=== PATIENT | male | born 1950 | race Caucasian/White ===

== ENCOUNTER 2022-02-14 00:24 | Day surgery (SDC) | payer MEDICARE, SELFPAY ==
[2022-01-02 11:17] VITALS: BMI 25.1
--- NOTE | 2022-02-13 16:43 | PM.HPGS ---
History of Present Illness History of Present Illness Consent: Risks, benefits, and alternatives have been discussed and questions answered. Patient agrees to proceed with procedure. Chief complaint: Hx of colon polyps Narrative: Sinan Yee is a 71 year old male Was referred for colon cancer screening. He has a history of polyps. At the time of his last colonoscopy 5 years ago only diverticulosis was noted. Review of Systems Review of Systems: All systems reviewed & are unremarkable except as noted in HPI and below PMFSH Surgical History Surgical History H/O colonoscopy History of shoulder surgery Social History Social History Smoking status: Never smoker Alcohol intake: current Drinks per week: 1 Substance use: never Substance use type: does not use Living arrangements: with family Spiritual care concerns: No Meds Home Medications and Allergies Home Medications Medication Instructions Recorded Confirmed Type No Home Medications 01/29/22 02/14/22 History Allergies Allergy/AdvReac Type Severity Reaction Status Date / Time No Known Allergies Allergy Verified 02/14/22 09:43 Exam Const: General: alert Orientation/consciousness: patient oriented x3 Resp: Auscultation: clear to auscultation bilaterally Cardio: Rhythm: regular rhythm GI: GI Palp: Yes Soft to palpation and No Tenderness to palpation present (GI) Neuro: General: patient oriented x3 Assessment and Plan Assessment and plan (1) Colon cancer screening: Code(s): Z12.11 - Encounter for screening for malignant neoplasm of colon Status: Acute Assessment and Plan: Colonoscopy with possible biopsy or polypectomy or cautery or injection of substances.
[2022-02-14 09:44] VITALS: BP 126/81; PULSE 72; RESP 16; TEMP 36; O2SAT 100; BMI 24.6
[2022-02-14] MEDS: LACTATED RINGERS 1,000 ML 150 ML IV CONT (09:53)
--- NOTE | 2022-02-14 09:55 | WPDANESEPPF ---
Anes - Initial Pre Proc Eval Procedure: Operation Date: 02/14/22 11:30 Proposed Procedures p Screening Colonoscopy - Ariel Tran MD Date/Time: 02/14/22 09:55 Surgeon: Ariel Tran MD Pre Op Diagnosis: Hx of colon polyps Patient Data Age: 71 Gender: M Height: 1.83 m Weight: 82.3 kg Last Vital Signs Temp 36.0 C L 02/14/22 09:44 Pulse 72 02/14/22 09:44 Resp 16 02/14/22 09:44 BP 126/81 02/14/22 09:44 Pulse Ox 100 02/14/22 09:44 O2 Del Method Room Air 02/14/22 09:44 Allergies Allergy/AdvReac Type Severity Reaction Status Date / Time No Known Allergies Allergy Verified 02/14/22 09:43 Home Medications Medication Instructions Recorded Confirmed Type No Home Medications 01/29/22 02/14/22 History Patient hx anesthesia problems: none Family hx anesthesia problems: none Results Review: All pre-operative results and documents have been reviewed as part of the pre-operative evaluation. [facility] Surgical History Surgical History (Updated 02/14/22 @ 09:55 by Sameer Doss MD) H/O colonoscopy History of shoulder surgery Social History Social History Smoking status: Never smoker Alcohol intake: current Drinks per week: 1 Substance use: never Substance use type: does not use Living arrangements: with family Spiritual care concerns: No Anes - Eval Final PreProcedure Day of Procedure 02/14/22 09:55 Patient weight: normal Heart: regular rate and rhythm Lungs: clear to auscultation Airway: Mallampati scale class 1 Neurological: alert and oriented Last oral intake: >/= 8 hours ASA classification: I Emergent: no Anesthetic plan: proceed Anesthesia type and monitoring: general GIVS and standard monitoring Results Review: All pre-operative results and documents have been reviewed as part of the pre-operative evaluation. Informed Consent: The patient's anesthetic plan and its attendant risks and benefits were discussed with the patient/family/POA. Questions were solicited and answers provided to the satisfaction of the patient/family/POA.
[2022-02-14] MEDS: SIMETHICONE ORAL SUSPENSION 20 MG/0.3 ML 30 ML BOTTLE 0.6 ML IRRIGATION (10:40)
[2022-02-14 10:47] VITALS: BP 111/81; PULSE 72; RESP 21; O2SAT 99
[2022-02-14 10:57] VITALS: BP 107/79; PULSE 66; RESP 17; O2SAT 97
[2022-02-14 11:07] VITALS: BP 113/62; PULSE 66; RESP 15; O2SAT 99
== END 2022-02-14 11:20 | disposition home or self-care (01) ==
PROVIDERS: PCP Family Medicine; Visit Provider Internal Medicine Gastroenterology
PROC: 0DJD8ZZ Inspection of Lower Intestinal Tract, Via Natural or Artificial Opening Endoscopic (ICD-10-PCS; CPT 45378; principal; 2022-02-14 11:30)
DX: Z12.11 Encounter for screening for malignant neoplasm of colon (principal); K57.30 Diverticulosis of large intestine without perforation or abscess without bleeding; Z86.010 Personal history of colon polyps
CPT/HCPCS: G0105; J2704; J7120

== ENCOUNTER 2025-02-21 09:07 | Outpatient (CLI) | payer MEDICARE, SELFPAY ==
--- NOTE | ~2025-02-21 | XR_ITS ---
EXAMINATION: XR shoulder LT min 2V, 02/21/2025 9:20 RN PAIN MANAGEMENT HISTORY: lt shoulder pain X 3 WKS, THROWING HEAVY OBJECT COMPARISON: No comparisons available. Findings: Postsurgical changes, no acute fracture is identified Moderate degenerative changes. Soft tissues unremarkable. Impression: No acute fracture or malalignment. Reviewed, dictated and finalized at location P. PAIN MANAGEMENT Impression: No acute fracture or malalignment.
== END 2025-02-21 09:08 | disposition home or self-care (01) ==
PROVIDERS: PCP Nurse Practitioner Family; Visit Provider Nurse Practitioner Family
DX: M25.512 Pain in left shoulder (principal)
CPT/HCPCS: 73030